=== PATIENT | male | born 1960 ===

== ENCOUNTER 2020-10-15 17:37 | Inpatient (IN) | payer BC ==
[2020-10-15] MEDS ORDERED: Vancomycin 1 GM/200 ML BAG ONE (18:20)
[2020-10-15] MEDS ORDERED: Ondansetron PF 4 MG/2 ML Vial ONE (18:20)
[2020-10-15] MEDS ORDERED: Morphine 4 MG/ML VIAL ONE (18:20)
[2020-10-15] MEDS ORDERED: Cefepime 2 GM VIAL ONE (18:20)
[2020-10-15 18:40] LABS: #Eosinphils 0.1 thou/uL (0.0-0.7); #Monocytes 0.7 thou/uL (0.11-0.59); #Neutrophils 7.8 thou/uL (1.40-6.50); %Basophils 0.2 % (0.0-1.0); %Eosinophils 1.4 % (0.0-10.0); %Lymphocytes 10.6 % (21.0-51.0); %Monocytes 6.9 % (0.0-10.0); %Neutrophils 80.9 % (42.0-75.0); Hemoglobin 12.4 g/dL (14.0-18.0); Mean Corpuscular HGB CONC 33.6 g/dL (32.0-36.0); Mean Corpuscular Hemoglobin 33.1 pg (27.0-31.0); Mean Corpuscular Volume 98.6 fL (78.0-98.0); Mean Platelet Volume 6.3 fL (7.4-10.4); Platelet Count 386 thou/uL (130-400); RBC Distribution Width 12.2 % (11.5-14.5); Red Blood Cell (RBC) Count 3.74 mill/uL (4.70-6.10); White Blood Cell (WBC) Count 9.7 thou/uL (4.8-10.8)
[2020-10-15 19:05] LABS: ALT (SGPT) 21 U/L (8-55); AST (SGOT) 32 U/L (5-34); Albumin 3.5 g/dL (3.4-4.8); Alkaline Phosphatase 41 U/L (40-110); Anion Gap 18 mmol/L (10-20); BUN (Urea Nitrogen) 14 mg/dL (8.4-25.7); Bilirubin, Total 0.4 mg/dL (0.2-1.2); Calc. Creatinine Clearance 0 mL/min (70-130); Calcium 8.7 mg/dL (7.8-10.44); Carbon Dioxide 25 mmol/L (23-31); Chloride 98 mmol/L (98-107); Globulin 3.7 g/dL (2.4-3.5); Glucose 83 mg/dL (80-115); Potassium 3.9 mmol/L (3.5-5.1); Protein, Total 7.2 g/dL (5.8-8.1); Sodium 137 mmol/L (136-145)
--- NOTE | 2020-10-15 19:13 | RAD ---
LEFT HAND THREE VIEWS: 10/15/20 HISTORY: Swelling, redness, left hand. FINDINGS/IMPRESSION: No fracture, dislocation, bony destruction or periosteal reaction is identified. POS: OFF
--- NOTE | 2020-10-15 19:16 | RAD ---
RIGHT FOOT THREE VIEWS: 10/15/20 HISTORY: Right great toe pain, swelling, redness. FINDINGS/IMPRESSION: No acute fracture or dislocation, bony destruction or periosteal reaction is seen. POS: OFF
--- NOTE | 2020-10-15 21:34 | PDOC.FPRHP ---
- History of Present Illness History of Present Illness: This is a 60M with a PMH notable for psoriasis and gout who presented to the ED with multiple complaints. 1. He has had L hand hand swelling, warmth, and pain limiting his ROM x7 days. He saw his PCP on Saturday who prescribed him Clindamycin, which he has been taking. The pain has improved and the swelling has mildly improved. This has happened 3x in the past, always after having received steroids. He received a steroid injection for his severe psoriasis 3wks ago. He also started Humira shortly after that, with which he has had multiple side effects including lip swelling, difficulty swallowing, labored breathing. He and his are suspicious that his hand could be related to this medication. Xray in the ED neg for fx and periosteal reaction. He was started on Vancomycin and Cefepime in the ED. 2. He has pain in his R foot accompanied by redness, swelling, warmth. It was so painful he could not walk on it today. The pain was relieved only by morphine in the ED. He has a hx of gout for which he takes allopurinol daily, and states he has not had a flare in years. Xray in the ED neg for fx and periosteal reaction. 3. R shoulder pain which he attributes to a steroid shot he was given for his severe psoriasis, as well as a flu shot. These were given 3wks ago but he states the pain in his shoulder is so pinpoint that he is sure this is what caused the pain. 4. General malaise, fever, fatigue, sore throat, loss of smell x1 wk. Last , he and his were exposed to his Covid + brother for ~15 minutes. They got tested for Covid on Saturday with a PCR test and were both negative. PCP: [facility] in [place], [place]. ED Course: Vancomycin 1g IV, Cefepime 2g IV, morphine 4mg IV, Zofran 4mg IV, 1L NS - Allergies/Adverse Reactions Allergies Allergy/AdvReac Type Severity Reaction Status Date / Time adalimumab [From Humira] Allergy Verified 10/16/20 05:59 aspirin Allergy Verified 10/16/20 02:17 penicillin G Allergy Verified 10/16/20 02:17 Sulfa (Sulfonamide Allergy Verified 10/16/20 02:17 Antibiotics) - Home Medications Medication Instructions Recorded Confirmed Type ALPRAZolam [Xanax] 1 - 2 tab PO PRN PRN 10/16/20 10/16/20 History Adalimumab [Humira] 40 mg SC Q14D 10/16/20 10/16/20 History Allopurinol 1 tab PO DAILY PRN 10/16/20 10/16/20 History Clindamycin [Cleocin] 300 mg PO QID 10/16/20 10/16/20 History Lisinopril/Hydrochlorothiazide 1 tab PO DAILY 10/16/20 10/16/20 History [Lisinopril-Hctz 20-12.5 mg Tab] - History PMHx: psoriasis, gout, HTN PSHx: tonsillectomy at 45yo. No issues with anesthesia FHx: Mom - DM Social: Lives with . Denies TAD - Review of Systems General: reports: fever/chills, weight/appetite/sleep changes (sleeping a lot x7d), fatigue ENT: reports: other (loss of sense of smell). denies: nasal congestion Respiratory: denies: cough, shortness of breath Cardiovascular: denies: chest pain, palpitation Gastrointestinal: reports: nausea, vomiting Genitourinary: denies: incontinence, dysuria Skin: reports: rashes (psoriasis). denies: jaundice Musculoskeletal: reports: swelling, arthritis/arthralgias Neurological: reports: weakness. denies: syncope Psychological: denies: anxiety, depression - Vital signs BP: 154/72 HR: 100 RR: 16 Tmax: 99.9F Pox: 98% on RA - Physical Exam Constitutional: NAD, awake, alert and oriented, well developed HEENT: normocephalic and atraumatic, EOMI, grossly normal vision, grossly normal hearing Neck: supple, FROM, trachea midline Chest: no-tender to palpation, no lesions Heart: RRR, normal S1/S2, no murmurs/rubs/gallops Lungs: CTAB, no respiratory distress, good air movement Abdomen: soft, non-tender Musculoskeletal: normal structure, normal tone, ROM grossly normal -Musculoskeletal: L hand edematous, ttp, not erythematous. No drainage, distinct wound, rash, warmth. Mildly limited ROM of hand and wrist with some pain on supination. R foot edematous, erythematous, not ttp. Main area of erythema is his big toe. Neurological: no focal deficit, CN II-XII intact -Skin: Lt hand swollen, ttp. No warmth/redness. Rt foot swollen, red, not ttp. Diffuse psoriasis Heme/Lymphatic: no unusual bruising or bleeding Psychiatric: normal mood and affect (anxious), good judgment and insight, intact recent and remote memory FMR H&P: Results - Labs Result Diagrams: 10/16/20 06:33 10/16/20 06:33 Lab results: Uric acid 6.8, nml Procal 0.09, nml WBC 9.7 thou/uL (4.8-10.8) 10/15/20 18:26 Hgb 12.4 g/dL (14.0-18.0) L 10/15/20 18:26 Hct 36.9 % (42.0-52.0) L 10/15/20 18:26 MCV 98.6 fL (78.0-98.0) H 10/15/20 18:26 Plt Count 386 thou/uL (130-400) 10/15/20 18:26 Neutrophils % 80.9 % (42.0-75.0) H 10/15/20 18:26 Sodium 137 mmol/L (136-145) 10/15/20 18:26 Potassium 3.9 mmol/L (3.5-5.1) 10/15/20 18:26 Chloride 98 mmol/L (98-107) 10/15/20 18:26 Carbon Dioxide 25 mmol/L (23-31) 10/15/20 18:26 BUN 14 mg/dL (8.4-25.7) 10/15/20 18:26 Creatinine 1.36 mg/dL (0.7-1.3) H 10/15/20 18:26 Glucose 83 mg/dL (80-115) 10/15/20 18:26 Lactic Acid 1.2 mmol/L (0.5-2.2) 10/15/20 18:26 Calcium 8.7 mg/dL (7.8-10.44) 10/15/20 18:26 Total Bilirubin 0.4 mg/dL (0.2-1.2) 10/15/20 18:26 AST 32 U/L (5-34) 10/15/20 18:26 ALT 21 U/L (8-55) 10/15/20 18:26 Alkaline Phosphatase 41 U/L (40-110) 10/15/20 18:26 C-Reactive Protein 10.03 mg/dL (= or < 0.5) H 10/15/20 18:26 Serum Total Protein 7.2 g/dL (5.8-8.1) 10/15/20 18:26 Albumin 3.5 g/dL (3.4-4.8) 10/15/20 18:26 - Radiology Interpretation Other Status: report reviewed by me (L hand and R foot xrays. Results as stated in HPI) FMR H&P: A/P - Plan This is a 60M presenting to the ED with L hand and R foot, as well as sxs concerning for Covid PNA. Sepsis - Tachycardic, febrile in ED, CRP 10 - LA nml at 1.2 - s/p 1L NS - Vancomycin and Cefepime in ED (10/15), continue Suspected acute gout flare of R foot - Hx of gout, on allopurinol maintenance. Continue - Xray neg for fx or periosteal reaction making osteomyelitis unlikely. - Uric acid nml at 6.8 - Will start Indomethacin for tx - Morphine for pain. Ambulate with assist - Consider MRI of foot to look for osteo if not responsive to Indomethacin - BCx pending L hand swelling - Alleged cellulitis although does not meet that criteria clinically - Clindamycin x5d outpt with improvement - Xray neg for fx or periosteal reaction making osteomyelitis unlikely. - Vancomycin and Cefepime in ED (10/15), continue - Morphine for pain - Consider MRI of hand to look for osteo if not responsive to abx - BCx pending Covid PUI - Direct exposure on 10/06 - Sxs for ~1wk - Covid neg PCR on 10/10 and neg rapid swab in ED on 10/15 - PCR covid swab, D-dimer, LDH, ferritin pending - Droplet precautions until confirmed ISSA on CKD vs ISSA - Cr 1.36, no baseline for comparison - Pt denies hx of renal disease - CrCl 56, dose meds appropriately - Monitor with am BMP Psoriasis - Continue home meds HTN - Resume home meds - Monitor vitals Anxiety - Resume home Xanax Dispo: medical inpt. eLOS >48hrs IVF: LR 110mL/h Diet: HH-LS GI ppx: N/A DVT ppx: SCDs Code: Full PCP: [facility] in [place], [place]. FMR H&P: Upper Level - Plan Date/Time: 10/15/202126 IJessica, have evaluated this patient and agree with findings/plan as outlined by web design intern resident. Pertinent changes/additions are listed here. This is a 60yo M with PMH of psoriasis who presents to the ER with CC of left hand pain. He reports it started to swell about 10 days ago. On Saturday, he called his PCP and was given clindamycin. He reports that the left hand has improved over the 10 days. It was previously much more swollen, red and hot than it is now. He states that about 3 weeks ago he got a flu shot and steroid shot. He says that after he has had steroids previously he had his left hand swell up like this. He also reports a history of staph infection in the left hand in the past. 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 No obvious trauma to the left hand that he remembers. He reports an exposure to his brother who was COVID pos last . The patient tested neg with a PCR test on Saturday. He does report cough, congestion, loss of taste/smell, NV. He denies fever, chills, abd pain, diarrhea, constipation. He has been eating normally. He has been taking his medications as directed. PE: On exam, left hand swollen, mildly erythematous, but overlying psoriasis. Limited ROM of left wrist - difficulty with flexion and extension due to pain. Severe pain with suprination of left wrist. R hand, normal exam. R great toe- erythema, warmth, swollen digit. Otherwise normal exam. Sepsis 2/2 Left Hand Infection Patient with left hand swelling, s/p clindamycin from PCP, improving over last week or so. Hx of staph in left hand previously. Xray normal of left hand. - Will continue vanc/cefepime. Procal 0.09. Likely can de-escalate tomorrow as left hand swelling is improved from previously. - Can consider further imaging to further evaluate osteo if not improving. - Blood cx pending - Tylenol for pain, morphine for breakthrough Acute Gout Flare Swelling, erythema to right great toe. Hx of gout. On allopurinol daily. Xray normal of right toe. - Will give NSAID STEVEN - Uric acid pending COVID PUD Patient with exposure to brother who tested positive on 10/06. He tested negative of 10/10. Having symptoms including congestion, loss of taste/smell, cough. No SOB or resp symptoms at this time - COVID swab to be repeated - Precautions Psoriasis On Humara. Received steroid injection 3 weeks ago. Uses steroid cream. - Currently stable HTN - aware, continue home meds. Will monitor. Anxiety Patient endorses severe anxiety. - aware, will resume home meds Dispo: admit to med, inpt Code: FULL PCP: [facility] Case to be discussed with Dr. Willams Addendum - Attending - Attending Attestation Date/Time: 10/15/20 [id number] I personally evaluated the patient and discussed the management with Dr. Swayer Hernández. I agree with the History, Examination, Assessment and Plan documented above with any addition or exceptions noted below. The patient is admitting for left hand cellulitis and gout in the right foot. Will treat with IV antibiotics, pain control. He has also had symptoms consistent with covid. Will check covid pcr.
[2020-10-15 22:54] LABS: SARS-CoV-2 NAA Rapid Test Not Detected (NotDetected)
[2020-10-15] MEDS ORDERED: traMADol HCl 50 MG TAB PO PRN (23:08)
[2020-10-15] MEDS ORDERED: Lactated Ringer's 1,000 ML IV SCH (23:30)
[2020-10-16] MEDS ORDERED: Lactated Ringer's 1,000 ML IV SCH (00:30)
[2020-10-16] MEDS ORDERED: Morphine 2 MG/ML VIAL SLOW IVP PRN (01:44)
[2020-10-16 02:06] VITALS: BMI 24.0
[2020-10-16] MEDS ORDERED: Allopurinol 300 MG TAB PO PRN (03:11)
[2020-10-16] MEDS ORDERED: ALPRAZolam 0.25 MG TAB PO SCH (03:30)
[2020-10-16] MEDS ORDERED: Sodium Chloride 0.9% 10 ML ONE (04:17)
[2020-10-16] MEDS: Cefepime 2 GM in Sodium Chloride 0.9% 100 ML IVPB SCH ×2 (05:29→18:09)
[2020-10-16] MEDS: Acetaminophen 325 MG TAB PO PRN ×3 (05:31→16:54)
[2020-10-16] MEDS ORDERED: Vancomycin 1 GM in Premix Bag 1 BAG IVPB SCH (07:00)
[2020-10-16 07:03] LABS: #Eosinphils 0.2 thou/uL (0.0-0.7); #Lymphocytes 1.1 thou/uL (1.20-3.40); #Monocytes 0.7 thou/uL (0.11-0.59); #Neutrophils 6.5 thou/uL (1.40-6.50); %Basophils 0.4 % (0.0-1.0); %Eosinophils 2.6 % (0.0-10.0); %Lymphocytes 12.6 % (21.0-51.0); %Neutrophils 76.3 % (42.0-75.0); Hemoglobin 10.4 g/dL (14.0-18.0); Mean Corpuscular HGB CONC 33.7 g/dL (32.0-36.0); Mean Corpuscular Hemoglobin 33.3 pg (27.0-31.0); Mean Corpuscular Volume 98.8 fL (78.0-98.0); Mean Platelet Volume 6.2 fL (7.4-10.4); Platelet Count 356 thou/uL (130-400); RBC Distribution Width 12.2 % (11.5-14.5); Red Blood Cell (RBC) Count 3.14 mill/uL (4.70-6.10); White Blood Cell (WBC) Count 8.5 thou/uL (4.8-10.8)
[2020-10-16 07:24] LABS: Anion Gap 13 mmol/L (10-20); BUN (Urea Nitrogen) 11 mg/dL (8.4-25.7); Calc. Creatinine Clearance 70 mL/min (70-130); Calcium 8.1 mg/dL (7.8-10.44); Carbon Dioxide 27 mmol/L (23-31); Chloride 103 mmol/L (98-107); Glucose 88 mg/dL (80-115); Sodium 139 mmol/L (136-145)
[2020-10-16] MEDS: Vancomycin HCl 750 MG in Sodium Chloride 0.9% 250 ML 250 ML IVPB SCH ×2 (08:33→20:40)
[2020-10-16] MEDS: Lisinopril/Hydrochlorothiazide 20 mg/12.5 mg Tablet PO SCH (08:36)
[2020-10-16] MEDS ORDERED: hydrOXYzine 25 MG TAB PO PRN (09:24)
[2020-10-16] MEDS: Indomethacin 25 mg Capsule PO SCH ×3 (10:31→20:43)
--- NOTE | 2020-10-16 11:17 | PDOC.FM ---
- Subjective Subjective: Doing well, reports pain is stable from yesterday. Slight improvement of edema in L hand. R foot much improved. no new complaints - Objective Vital Signs & Weight: Vital Signs (12 hours) Temp Pulse Resp BP Pulse Ox 10/16/20 08:36 88 10/16/20 08:00 98.0 F 88 20 126/62 100 10/16/20 04:08 99 F 93 16 126/63 98 Weight Weight 67.585 kg Result Diagrams: 10/16/20 06:33 10/16/20 06:33 Phys Exam - Physical Examination Constitutional: NAD HEENT: moist MMs, sclera anicteric Neck: no nodes, no JVD Respiratory: no wheezing, clear to auscultation bilateral Cardiovascular: RRR, no significant murmur Gastrointestinal: soft, non-tender Musculoskeletal: pulses present Neurological: normal sensation, moves all 4 limbs Psychiatric: normal affect, A&O x 3 Skin: no rash, normal turgor -: pain on mvmt of L fingers, slight edema in L hand, minimal erythema Dx/Plan - Plan Plan: Sepsis 2/2 L hand cellulitis A- stable, tachy and febrile in ED. - Clindamycin x5d outpt with improvement. Xray neg for fx or periosteal reaction making osteomyelitis unlikely. P- Vancomycin and Cefepime (10/15), continue - Morphine for pain - Consider CT of hand to look for osteo or deep tissue infection if not improving - BCx pending - will have low threshold for further imaging and hand surgery consult considering high risk for deep infection Suspected acute gout flare of R foot - Hx of gout, on allopurinol maintenance. Continue - Xray neg for fx or periosteal reaction making osteomyelitis unlikely. - Uric acid nml at 6.8 - Indomethacin for tx - Morphine for pain. Ambulate with assist Covid PUI - Direct exposure on 10/06 - Sxs for ~1wk - Covid neg PCR on 10/10 and neg rapid swab in ED on 10/15 - PCR covid swab, D-dimer, LDH, ferritin pending - Droplet precautions until confirmed ISSA -resolved Psoriasis - Continue home meds HTN - Resume home meds - Monitor vitals Anxiety - Resume home Xanax Code: Full PCP: [facility] in [place], [place]. Addendum - Attending - Attending Attestation Date/Time: 10/16/20 [id number] I personally evaluated the patient and discussed the management with Dr. Carvajal. I agree with the History, Examination, Assessment and Plan documented above with any addition or exceptions noted below. Swelling in the left hand is improved a little from last night. Will continue antibiotics. Will get covid pcr as pt has had symptoms consistent with covid including loss of taste and smell. Checking additional labs. Right foot is responding to gout treatment. Pt has more range of motion in his hand this morning.
[2020-10-16 18:06] LABS: SARS-CoV-2 PCR by NAA Not Detected (NotDetected)
[2020-10-16] MEDS: ALPRAZolam 0.25 MG TAB PO SCH (20:43)
--- NOTE | 2020-10-17 06:12 | PDOC.FM ---
- Subjective Subjective: Doing well this morning. Pain and swelling of Left hand much improved. Erythema resolved. Did not sleep well last night. Right toe pain resolved. Denies CP, SOB, n/v, fever/chills. Tolerating PO well. - Objective MAR Reviewed: Yes Vital Signs & Weight: Vital Signs (12 hours) Temp Pulse Resp BP Pulse Ox 10/16/20 20:30 95 10/16/20 20:00 98.1 F 78 18 124/74 95 Weight Weight 67.585 kg I&O: 10/15/20 10/16/20 10/17/20 06:59 06:59 06:59 Intake Total 1240 Balance 1240 Result Diagrams: 10/16/20 06:33 10/16/20 06:33 Phys Exam - Physical Examination Constitutional: NAD (resting comfortably, good spirits) HEENT: moist MMs Neck: supple Respiratory: no wheezing, no rales, no rhonchi, clear to auscultation bilateral Cardiovascular: RRR, no significant murmur, no rub Gastrointestinal: soft, non-tender, positive bowel sounds Left hand mildly swollen, 4/5 strength, no erythema or edema R great toe midly swollen, no pain, limited ROM Neurological: moves all 4 limbs Psychiatric: normal affect, A&O x 3 Dx/Plan (1) Cellulitis of hand Code(s): L03.119 - CELLULITIS OF UNSPECIFIED PART OF LIMB Status: Acute (2) Gout flare Code(s): M10.9 - GOUT, UNSPECIFIED Status: Acute Qualifiers: Gout site: foot Laterality: right (3) Psoriasis Code(s): L40.9 - PSORIASIS, UNSPECIFIED Status: Acute - Plan Plan: 60yo M with h/o psoriasis, HTN, anxiety who presented with sepsis 2/2 L hand cellulitis #Sepsis 2/2 L hand cellulitis - stable, tachy and febrile in ED. - Clindamycin x5d outpt. Xray neg for fx or periosteal reaction making osteomyelitis unlikely. - Vancomycin and Cefepime (10/15), continue, transition to PO abx today and monitor sxs - Consider MRI of hand to look for osteo or deep tissue infection if not improving or sxs begin to worsen - BCx NGTD - low threshold for further imaging and hand surgery consult considering high risk for deep infection #Acute gout flare of R Great Toe, resolved - Hx of gout, on allopurinol maintenance. Continue - Xray neg for fx or periosteal reaction making osteomyelitis unlikely. - Indomethacin for tx #Covid PUI, negative and off precautions - Direct exposure on 10/06 - Covid neg PCR on 10/10 and neg rapid swab in ED on 10/15, PCR negative on admission - elevated inflammatory markers however psoriasis and cellulitis can also lead to elevations #ISSA -resolved #Psoriasis - Continue home meds #HTN - Resume home meds - Monitor vitals - consider d/c of hctz as can precipitate gout flares #Anxiety - Resume home Xanax prn #Anemia - Hb 10, no s/s of acute blood loss, suspected anemia of chronic disease - will need outpatient follow up and workup Code: Full PCP: [facility] in [place], [place]. VTE: SCDs IVF: SL Diet: HH Dispo: Transition to PO abx, consider further imaging if any worsening of sxs. A nticipate discharge tomorrow pending clinical course. Addendum - Attending - Attending Attestation Date/Time: 10/17/20 [id number] I personally evaluated the patient and discussed the management with Dr. Honeycutt I agree with the History, Examination, Assessment and Plan documented above with any addition or exceptions noted below- Patient denies complaints. No further pain in hand; having some swelling along wrist and hand; no erythema. Afebrile VSS. A/P: 1) Left hand cellulitis- overall improved; continue current antibiotics. Awaiting MRI of hand. 2) HTN- continue home meds.
[2020-10-17] MEDS: Cefepime 2 GM in Sodium Chloride 0.9% 100 ML IVPB SCH (06:24)
[2020-10-17] MEDS ORDERED: Melatonin 3 MG TAB PO PRN (07:31)
[2020-10-17 07:38] LABS: Vancomycin, Trough 13.3 ug/mL
[2020-10-17] MEDS: Vancomycin HCl 750 MG in Sodium Chloride 0.9% 250 ML 250 ML IVPB SCH (08:22)
[2020-10-17] MEDS: Lisinopril/Hydrochlorothiazide 20 mg/12.5 mg Tablet PO SCH (08:23)
[2020-10-17] MEDS: Indomethacin 25 mg Capsule PO SCH ×2 (08:24→16:12)
[2020-10-17] MEDS: Acetaminophen 325 MG TAB PO PRN (08:43)
[2020-10-17] MEDS ORDERED: Vancomycin 1 GM in Premix Bag 1 BAG IVPB SCH (09:00)
[2020-10-17] MEDS ORDERED: Magnevist 469MG/ML 20 ML VIAL ONE (10:01)
[2020-10-17] MEDS ORDERED: Ondansetron PF 4 MG/2 ML Vial IVP PRN (11:32)
[2020-10-17] MEDS ORDERED: Ondansetron ODT 4 MG TAB PO PRN (11:32)
--- NOTE | 2020-10-17 15:56 | MRI ---
MRI OF LEFT WRIST AND HAND WITH AND WITHOUT IV CONTRAST: DATE: 10/17/2020. PROVIDED CLINICAL HISTORY: Pain, redness, and swelling. FINDINGS: There is diffuse noncircumscribed fluid signal intensity within the regional subcutaneous adipose lay er, without associated contrast enhancement. There is a distal radial ulnar joint effusion. There is prominent synovial enhancement involving the distal radial ulnar, radiocarpal, and carpometacarpal joints. There is multifocal bone marrow edema, most conspicuously involving the periarticular regions of the 2nd, 3rd, and 4th carpometacarpal joints. Bone marrow edema is also demonstrated within the trapeziu m and distal ulna. Patchy edema is also seen within portions of the proximal carpal row. There is p robable erosive change demonstrated at the ulnar margin of the distal lunate. No definite additional erosive change is evident involving the carpus. Erosions are suspected involving the radial aspects of the 2nd and 3rd metacarpal heads without associated marrow edema or contrast enhancement and demo nstrated corticated margins. There is no focal concerning regional muscular signal abnormality evident. There is no evidence for a focal fluid collection to suggest a soft tissue abscess. A small ganglion cyst was seen at the uln ar aspect of the thumb metacarpal neck. IMPRESSION: Multifocal bone marrow edema predominantly about the carpus as described above, with associated synov ial enhancement suggesting synovitis. Findings are most likely reflective of an inflammatory or meta bolic arthritis. Correlate with concerns for infectious arthritis. There is no evidence for soft ti ssue abscess. POS: [facility]
[2020-10-17] MEDS: Ibuprofen 600 MG TAB PO PRN ×2 (17:39→23:08)
[2020-10-17] MEDS: Doxycycline 100 MG CAP PO SCH (21:25)
[2020-10-17] MEDS: ALPRAZolam 0.25 MG TAB PO SCH (21:26)
[2020-10-18] MEDS ORDERED: traMADol HCl 50 MG TAB PO SCH ×2 (00:15→07:15)
[2020-10-18] MEDS: Acetaminophen 325 MG TAB PO PRN ×3 (00:16→20:09)
[2020-10-18] MEDS: Ibuprofen 600 MG TAB PO PRN (06:54)
[2020-10-18 07:26] LABS: #Eosinphils 0.3 thou/uL (0.0-0.7); #Lymphocytes 1.4 thou/uL (1.20-3.40); #Monocytes 0.6 thou/uL (0.11-0.59); #Neutrophils 5.5 thou/uL (1.40-6.50); %Basophils 0.6 % (0.0-1.0); %Eosinophils 3.6 % (0.0-10.0); %Monocytes 7.4 % (0.0-10.0); %Neutrophils 70.3 % (42.0-75.0); Hemoglobin 10.5 g/dL (14.0-18.0); Mean Corpuscular HGB CONC 33.4 g/dL (32.0-36.0); Mean Corpuscular Hemoglobin 33.5 pg (27.0-31.0); Mean Platelet Volume 6.3 fL (7.4-10.4); Platelet Count 371 thou/uL (130-400); Red Blood Cell (RBC) Count 3.13 mill/uL (4.70-6.10); White Blood Cell (WBC) Count 7.9 thou/uL (4.8-10.8)
--- NOTE | 2020-10-18 07:28 | PDOC.FM ---
- Subjective Subjective: Patient pain increased this morning. Left wrist pain, left MCP joint pain. New onset Right knee pain. Right great toe pain resolved. Denies fever/chills, n/v, CP, SOB. States he has never had psoriatic arthritis prior. Does endorse history of gout. Tolerated PO. Ambulating yesterday. Does not have OP rheum. - Objective MAR Reviewed: Yes Vital Signs & Weight: Weight Weight 67.585 kg I&O: 10/17/20 10/18/20 10/19/20 06:59 06:59 06:59 Intake Total 2130 803 Balance 2130 803 Result Diagrams: 10/18/20 06:54 10/18/20 06:54 Phys Exam - Physical Examination Constitutional: NAD (resting in bed. Does not move much due to pain.) HEENT: moist MMs Neck: no nodes, supple Respiratory: no wheezing, no rales, no rhonchi, clear to auscultation bilateral Cardiovascular: RRR, no significant murmur Gastrointestinal: soft, no distention, positive bowel sounds 4/5 strength left hand. Mild swelling, stable from yesterday. Pain palpation left MCP 1st digit and wrist. Pain with flexion of hand. Psychiatric: normal affect Deviation from normal: psoratic rash on many aspects of limbs. Right knee painful to light -: touch Dx/Plan (1) Cellulitis of hand Code(s): L03.119 - CELLULITIS OF UNSPECIFIED PART OF LIMB Status: Acute (2) Gout flare Code(s): M10.9 - GOUT, UNSPECIFIED Status: Acute Qualifiers: Gout site: foot Laterality: right (3) Psoriasis Code(s): L40.9 - PSORIASIS, UNSPECIFIED Status: Acute - Plan Plan: 60yo M with h/o psoriasis, HTN, anxiety who presented with sepsis 2/2 L hand cellulitis #Sepsis 2/2 L hand cellulitis, improved - stable, tachy and febrile in ED. - Clindamycin x5d outpt. Xray neg for fx or periosteal reaction making osteomyelitis unlikely. - Vancomycin and Cefepime (10/15), continue, transitioned to PO doxy. VSS and no return of erythema or signs of cellulitis. - MRI hand suggestive of synovitis and inflammatory arthritis. No abscess or evidence of osteo - BCx NGTD #Acute gout flare of R Great Toe, resolved, and now suspected R knee - Hx of gout, on allopurinol maintenance. Continue - Xray neg for fx or periosteal reaction making osteomyelitis unlikely. - Motrin schd. D/c HCTZ. #Suspected Psoriatic arthritis - MRI evidence and clinical picture - Consider immunomodulators however in setting of infection would like infection to clear prior to starting - would benefit from outpatient rheum follow up and management #Covid PUI, negative and off precautions - Direct exposure on 10/06 - Covid neg PCR on 10/10 and neg rapid swab in ED on 10/15, PCR negative on admission - elevated inflammatory markers however psoriasis and cellulitis can also lead to elevations #ISSA -resolved #Psoriasis - Continue home meds - likely contributing to above #HTN - Resume home meds - Monitor vitals - d/c of hctz as can precipitate gout flares #Anxiety - Resume home Xanax prn #Anemia - Hb 10, no s/s of acute blood loss, suspected anemia of chronic disease 2/2 autoimmune condition - will need outpatient follow up and workup Code: Full PCP: [facility] in [place], [place]. VTE: SCDs IVF: SL Diet: HH Dispo: Transitioned to PO abx, consider ortho consult if worsening of left hand. Would benefit from rheum outpt follow up. Monitor sxs closely. Anticipate discharge in next 24-48hrs pending clinical course. Addendum - Attending - Attending Attestation Date/Time: 10/19/20 [id number] I personally evaluated the patient and discussed the management with Dr. Honeycutt on 10/18/2020 I agree with the History, Examination, Assessment and Plan documented above with any addition or exceptions noted below- Patient and concerned regarding swelling over top of hand and wrist. Afebrile VSS. A/P: 1) Cellulitis- improved; continue current abx. Discussed MRI findings with patient and - no evidence of abscess; changes consistent with inflammatory arthritis most likely secondary to his psoriasis. with their concerns, will consult ortho to review case.
[2020-10-18 07:46] LABS: ALT (SGPT) 12 U/L (8-55); AST (SGOT) 16 U/L (5-34); Albumin 2.9 g/dL (3.4-4.8); Alkaline Phosphatase 39 U/L (40-110); Anion Gap 15 mmol/L (10-20); BUN (Urea Nitrogen) 14 mg/dL (8.4-25.7); Bilirubin, Total 0.3 mg/dL (0.2-1.2); Calc. Creatinine Clearance 54 mL/min (70-130); Calcium 8.2 mg/dL (7.8-10.44); Carbon Dioxide 27 mmol/L (23-31); Chloride 104 mmol/L (98-107); Globulin 2.9 g/dL (2.4-3.5); Glucose 78 mg/dL (80-115); Potassium 3.9 mmol/L (3.5-5.1); Protein, Total 5.8 g/dL (5.8-8.1); Sodium 142 mmol/L (136-145)
[2020-10-18] MEDS: Ibuprofen 600 MG TAB PO SCH ×2 (07:53→14:47)
[2020-10-18] MEDS: Lisinopril 20 MG TAB PO SCH (07:57)
[2020-10-18] MEDS: Doxycycline 100 MG CAP PO SCH ×2 (07:59→21:17)
[2020-10-18] MEDS ORDERED: PROPOFOL 200 MG/20 ML VIAL ONE (08:59)
[2020-10-18] MEDS ORDERED: Dexamethasone 20 MG/5 ML VIAL ONE (08:59)
[2020-10-18] MEDS ORDERED: Lidocaine 1% PF 5 ML VIAL ONE (08:59)
[2020-10-18] MEDS ORDERED: Ondansetron PF 4 MG/2 ML Vial ONE (08:59)
[2020-10-18] MEDS ORDERED: Bacitracin Zinc Ointment 30 gm TUBE ONE (16:59)
[2020-10-18] MEDS ORDERED: Sodium Chloride 0.9% 10 ML ONE (16:59)
[2020-10-18] MEDS ORDERED: Bupivacaine PF 0.5% 30 ML VIAL ONE (16:59)
[2020-10-18] MEDS ORDERED: Fentanyl 100 MCG/2 ML VIAL ONE (17:41)
[2020-10-18] MEDS ORDERED: Midazolam HCl 2 mg/2 ml Vial ONE (17:41)
[2020-10-18] MEDS ORDERED: Promethazine HCl 25 MG/ML VIAL SLOW IVP PRN (18:24)
[2020-10-18] MEDS ORDERED: Meperidine HCl/PF 25 MG/ML VIAL SLOW IVP PRN ×2 (18:24)
[2020-10-18] MEDS ORDERED: Ketorolac Tromethamine 30 MG/ML VIAL IVP PRN (18:24)
[2020-10-18] MEDS ORDERED: Promethazine HCl 25 MG/ML VIAL IM PRN (18:24)
[2020-10-18] MEDS ORDERED: Ondansetron HCl/PF 4 MG/2 ML Vial IVP PRN (18:24)
[2020-10-18] MEDS ORDERED: Acetaminophen 325 MG TAB ONE (20:06)
[2020-10-18] MEDS: ALPRAZolam 0.25 MG TAB PO SCH (21:17)
[2020-10-18] MEDS: Colchicine 0.6 MG TAB PO SCH (21:18)
[2020-10-18] MEDS ORDERED: Morphine 4 MG/ML VIAL SLOW IVP PRN (21:51)
[2020-10-18] MEDS ORDERED: HYDROcodone/Acetaminophen 7.5/325 mg Tablet PO PRN ×2 (21:51)
--- NOTE | 2020-10-19 00:32 | OP ---
DATE OF PROCEDURE: 10/18/2020 PREOPERATIVE DIAGNOSIS: Possible extensor carpi ulnaris tenosynovitis plus or minus abscess, just proximal to the metacarpal head. FINDINGS: 1. No intra-articular or subcutaneous abscess or deep abscess or tendon sheath abnormality near the metacarpal head. 2. Very thick tenosynovium around the ECU sheath with marked extensor carpi ulnaris tenosynovitis. PROCEDURE PERFORMED: Extensor carpi ulnaris radical extensor tenosynovectomy, question secondary to gout. SPECIMENS SENT: Tenosynovium and then culture of the wound. Again found very thick extensor carpi ulnaris sheath with tenosynovial thickening in the almost gingivial type color fluid indicative of inflammatory process more than infection. INDICATIONS FOR PROCEDURE: The patient with pain in his hand and wrist for at least one week. Treated with oral antibiotics and IV antibiotics. No change. He reported he may have some symptoms when he came in, but these dissipated. He has a negative COVID. MRI did not show abscess, only possible so for this reason, at the point of maximal tenderness we did 2 separate incisions; one primarily over the ECU sheath and one 1 cm proximal to metacarpal head, exploration and possible synovectomy versus drainage would be indicated. TOURNIQUET TIME: 12 minutes. ESTIMATED BLOOD LOSS: 10 mL. DESCRIPTION OF PROCEDURE: After successful general LMA technique, the limb was already prepped and draped. We then injected 10 mL of superficial ulnar nerve and then outlined incision of the ECU sheath that was 2 cm long and then 1 cm incision over the distal metacarpal head. We exsanguinated the limb, inflated tourniquet to 250 mmHg pressure, we well-padded the area of the tourniquet. The patient had the distal incision made first, carried through skin and subcutaneous tissues. No thickening, swelling, edema, or fluid. We irrigated this area and closed it with interrupted 1 suture in the center with 4-0 nylon. We then made a zigzag incision over the ECU sheath at the second point of maximal tenderness and here, immediately we saw some thickening, almost bulge of the extensor carpi ulnaris sheath. We opened this over 1 cm area, elevated the tendon and found some straw-colored fluid with no gross infection. The extensor tendon sheath was very thick, so we did a radical extensor tenosynovectomy, flexed and extended the wrist, ulnar and radial deviated to allow through the tenosynovectomy, not just an area exposed, but proximal and distal to this. We then irrigated the area, sent the tenosynovium specimen to the lab for culture and could not extract enough fluid to perform a gout analysis. We had protected superficial ulnar nerve throughout the entire dissection with gentle retraction. We then obtained hemostasis. Then I closed the sheath area. We closed the proximal wound with 5 mm space between each stitch as there was no gross infection. We then gave the remaining 10 mL of 0.5% Marcaine for the block of the superficial ulnar nerve, covered with bacitracin, Adaptic, 4x4, Kerlix, and Abraham wrap and then we removed the tourniquet. We noticed that in the area where his psoriasis was very dense, he had two 1.5 cm long skin tags, one on the palmar aspect which was partial thickness, one that was with the epidermis still intact and one with the epidermis loss, but the dermis intact, still intact dorsally. We covered these with bacitracin Adaptic, 4x4, and a Kerlix as well. Job ID: [id number]
[2020-10-19] MEDS: Ibuprofen 600 MG TAB PO SCH ×2 (00:33→08:31)
--- NOTE | 2020-10-19 07:00 | PDOC.FM ---
- Subjective Subjective: Doing very well this morning. Taken to OR yesterday, tolerated procedure well. Pain well-controlled. Feeling much better and has more movement of hand post-op. Tolerating PO. Denies fever/chills, CP, SOB, n/v, worsening of skin erythema/tenderness/or warmth. Eager for discharge. - Objective MAR Reviewed: Yes Vital Signs & Weight: Vital Signs (12 hours) Temp Pulse Resp BP Pulse Ox 10/19/20 01:20 74 18 143/76 H 98 10/19/20 00:20 79 17 127/62 95 10/18/20 23:20 81 16 119/65 94 L 10/18/20 22:20 82 18 121/60 92 L 10/18/20 21:20 78 16 124/60 97 10/18/20 20:50 85 16 141/70 H 97 10/18/20 20:20 84 16 163/86 H 96 10/18/20 19:50 97.8 F 91 16 161/94 H 97 Weight Weight 67.585 kg I&O: 10/17/20 10/18/20 10/19/20 06:59 06:59 06:59 Intake Total 2130 803 480 Balance 2130 803 480 Result Diagrams: 10/18/20 06:54 10/18/20 06:54 Phys Exam - Physical Examination Constitutional: NAD (resting comfortably, good spirits) HEENT: moist MMs Neck: supple Respiratory: no wheezing, no rales, no rhonchi, clear to auscultation bilateral Cardiovascular: RRR, no significant murmur Gastrointestinal: soft, non-tender, positive bowel sounds L hand dressing c/d/i, movement of fingers and normal sensation distal to dressing Neurological: normal sensation, moves all 4 limbs Psychiatric: normal affect, A&O x 3 Dx/Plan (1) Cellulitis of hand Code(s): L03.119 - CELLULITIS OF UNSPECIFIED PART OF LIMB Status: Acute (2) Gout flare Code(s): M10.9 - GOUT, UNSPECIFIED Status: Acute Qualifiers: Gout site: foot Laterality: right (3) Psoriasis Code(s): L40.9 - PSORIASIS, UNSPECIFIED Status: Acute - Plan Plan: 60yo M with h/o psoriasis, HTN, anxiety who presented with sepsis 2/2 L hand cellulitis now POD#1 #Sepsis 2/2 L hand cellulitis, improved - stable, tachy and febrile in ED. - Clindamycin x5d outpt. Xray neg for fx or periosteal reaction making osteomyelitis unlikely. - Vancomycin and Cefepime (10/15), continue, transitioned to PO doxy. VSS and no return of erythema or signs of cellulitis. Will finish 10 total days of abx - currently Day 5 - MRI hand suggestive of synovitis and inflammatory arthritis. No abscess or evidence of osteo - BCx NGTD - Dr. Ulloa, hand ortho, consulted, taken to OR for extensor carpi ulnaris radical extensor tenosynovectomy. No evidence of abscess, tendon shealh abnormality, or infection. Cultures obtained and no organism on Gram stain, cultures pending. Apprec recs and assistance. - Psoriatic arthritis contributing to pain, would benefit greatly for outpt rheum follow up #Suspected Psoriatic arthritis - Contributing to above and likely cause of R great toe and R knee pain as well. Considering gout thus stopped HCTZ and on NSAIDs. - MRI evidence and clinical picture - Consider immunomodulators however in setting of infection would like infection to clear prior to starting - would benefit from outpatient rheum follow up and management #Covid PUI, negative and off precautions - Direct exposure on 10/06 - Covid neg PCR on 10/10 and neg rapid swab in ED on 10/15, PCR negative on admission - elevated inflammatory markers however psoriasis and cellulitis can also lead to elevations #ISSA -resolved #Psoriasis - Continue home meds - likely contributing to above #HTN - Monitor vitals - d/c of hctz as can precipitate gout flares. Lisinopril 30mg daily. #Anxiety - Resume home Xanax prn #Anemia - Hb 10, no s/s of acute blood loss, suspected anemia of chronic disease 2/2 autoimmune condition - will need outpatient follow up and workup Code: Full PCP: [facility] in [place], [place]. VTE: SCDs IVF: SL Diet: HH Dispo: Transitioned to PO abx, ortho consulted and a/p surgery POD#1. Would benefit from rheum outpt follow up. Monitor sxs closely. Anticipate discharge t miguel angel pending clinical course and ortho recs. Addendum - Attending - Attending Attestation Date/Time: 10/19/20 1141 I personally evaluated the patient and discussed the management with Dr. Honeycutt I agree with the History, Examination, Assessment and Plan documented above with any addition or exceptions noted below - Patient denies complaints. Pain controlled; afebrile VSS. A/P: 1) Cellulitis- improved. 2) S/P wrist exploration - no gross evidence of infection seen; Appreciate assistance from Dr. Ulloa. Possible d/c home later today.
[2020-10-19 08:07] VITALS: TEMP 98
[2020-10-19] MEDS: Doxycycline 100 MG CAP PO SCH (08:30)
[2020-10-19] MEDS: Lisinopril 20 MG TAB PO SCH (08:30)
[2020-10-19] MEDS: Colchicine 0.6 MG TAB PO SCH (08:30)
[2020-10-19 12:43] VITALS: BP 161/74
--- NOTE | 2020-10-20 11:31 | DIS ---
DATE OF ADMISSION: 10/15/2020 DATE OF DISCHARGE: 10/19/2020 RESIDENT: Duran Honeycutt MD ADMITTING ATTENDING: Sandy Willams MD DISCHARGING ATTENDING: Delia Carrasquillo MD CONSULT: Orthopedic Surgery, Dr. Ulloa. PROCEDURES: 1. Extensor carpi ulnaris radical extensor tenosynovectomy performed on 10/18/2020. 2. Right foot x-ray showing no acute fracture or dislocation. 3. Left hand x-ray performed on 10/15/2020, demonstrating no fracture or dislocation, bony destruction, or periosteal reaction. 4. Left upper extremity MRI on 10/17/2020, demonstrating multifocal bone marrow edema predominantly about the carpus with associated synovial enhancement suggesting synovitis. Findings are most likely reflective of inflammatory or metabolic arthritis. No evidence of soft tissue abscess. PRIMARY DIAGNOSES: 1. Sepsis secondary to left hand cellulitis, improving. 2. Psoriatic arthritis. SECONDARY DIAGNOSES: 1. Acute kidney injury, resolved. 2. Psoriasis. 3. Hypertension. 4. Anxiety. 5. Anemia. DISCHARGE MEDICATIONS: 1. Allopurinol 300 mg 1 tablet p.o. daily. 2. Humira 40 mg subcu q.14 days as directed. 3. Lisinopril 30 mg p.o. daily. 4. Tramadol 50 mg p.o. p.r.n. 5. Doxycycline 100 mg p.o. b.i.d. x5 days. 6. Colchicine 0.6 mg p.o. b.i.d. x3 days. 7. Xanax 0.5 mg 1-2 tabs p.o. p.r.n. as directed. Discontinued medications: 1. Clindamycin 300 mg p.o. q.i.d. 2. Lisinopril/hydrochlorothiazide 20/12.5 one tab p.o. daily. HISTORY OF PRESENT ILLNESS AND HOSPITAL COURSE: The patient is a 60-year-old male with history of psoriasis, who presented to emergency room with sepsis secondary to left hand cellulitis. He was initially placed on broad-spectrum IV antibiotics. Blood cultures returned no growth. Imaging did not show any deep tissue infection. Patient was ultimately transitioned to p.o. doxy. Patient's pain and swelling minimally, but not completely, improved. Thus, Orthopedics was consulted for evaluation. MRI findings per above did not demonstrate any abscess or deep tissue infection. Patient was taken to the OR for radical extensor tenosynovectomy with improvement of pain. No infection was noted. Patient had cultures obtained that were no growth at 36 hours. Patient's blood cultures were no growth at 48 hours. Patient's white count trended down. It was determined that the patient will complete course of p.o. doxy for cellulitis as well as follow up with Rheumatology for psoriatic arthritis, likely underlying cause of most of his joint pain. Patient was also a COVID PUI. He was COVID negative and had no respiratory symptoms or compromise. Patient continued to improve with pain much improved postoperatively. Discharge plan was then discussed with the patient and at bedside with appropriate followup with Dr. Ulloa. The patient was encouraged to follow up with Rheumatology as an outpatient. The patient and voiced agreement understanding of discharge plan. All questions were answered. The patient was discharged home. DISPOSITION: Stable. DISCHARGE INSTRUCTIONS: 1. Location: Home. 2. Diet: Regular. 3. Activity: To remove dressing from surgical site in 3 days. Minimal lifting until cleared by Surgery. 4. Followup: Patient is to follow up with Dr. Ulloa in 1 week. Should follow up with primary care physician within 1 week. Patient is to follow up with Rheumatology as soon as possible. Job ID: [id number] [facility]
[2020-10-27] MEDS ORDERED: ADALIMUMAB 40 MG/0.8 ML SC SCH (09:00)
== END 2020-10-19 14:30 | disposition home or self-care (01) | DRG 854 ==
LOC: ERS 17:37 → 3SE 21:27
PROVIDERS: ADMIT Family Medicine; ATTEND Family Medicine
PROC: 0LB80ZZ Excision of Left Hand Tendon, Open Approach (ICD-10-PCS; principal; 2020-10-15)
DX: A41.9 Sepsis, unspecified organism (principal); L03.114 Cellulitis of left upper limb; N17.9 Acute kidney failure, unspecified; Z20.822 Contact with and (suspected) exposure to COVID-19; L40.50 Arthropathic psoriasis, unspecified; I10 Essential (primary) hypertension; F41.9 Anxiety disorder, unspecified; D64.9 Anemia, unspecified; M10.9 Gout, unspecified; D63.8 Anemia in other chronic diseases classified elsewhere; Z83.3 Family history of diabetes mellitus; Z88.0 Allergy status to penicillin; Z88.2 Allergy status to sulfonamides; Z79.899 Other long term (current) drug therapy
CPT/HCPCS: 0240U; 36415; 80048; 80053; 80202; 82728; 83605; 83615; 84145; 84550; 85025; 85379; 86140; 87040; 87070; 87205; 87635; 88305; 96365; 96367; 96375; A9579; J0692; J1100; J2250; J2270; J2405; J2704; J3010; J3370; J3490; J7050; S0020; U0003; U0005